=== PATIENT | male | born 1950 | race Caucasian/White ===

== ENCOUNTER 2020-11-13 19:02 | Emergency (ER) | payer MEDICARE, BC ==
[~2020-11-13] VITALS: Ht 170.2 cm; Wt 83.0 kg
--- NOTE | 2020-11-13 19:55 | NUR ---
PT TO ED FROM [place]. STATES HE HAS BEEN FEELING FATIGUED S FEVERS X TUESDAY LAST WEEK. HE HAS BEEN SWABBED FOR COVID, PEDING RESULTS. PT +SORE THROAT, DENIES H/A, N/V/D. PT +LOSS OF TASTE & SMELL X 2 DAYS. PT REPORTS LOW SPO2 AT HOME. PT SPEAKING IN FULL SENTANCES, 96% RA. PIV ESTB. LABS DRAWN & SENT. CXR COMPLETED. COVID SWAB PENDING. FAMILY UPDATED, [place], IN [facility]. VSS. DENIES ANY NEEDS. CALL LIGHT INREACH. WILL CTM.
[2020-11-13 20:02] LABS: BASOPHILS % (AUTO) 1 % (0-1); EOSINOPHILS % (AUTO) 0 % (1-7); LYMPHOCYTES % (AUTO) 28 % (22-44); MEAN CORPUSCULAR HEMOGLOBIN 31.8 pg (27.5-34.5); MEAN CORPUSCULAR HGB CONC 34.8 g/dL (33.2-36.2); MEAN PLATELET VOLUME 7.8 fL (7.4-10.4); MONOCYTES % (AUTO) 10 % (2-9); NEUTROPHILS % (AUTO) 62 % (42-75); PLATELET COUNT 172 x10^3/uL (130-400); RED BLOOD COUNT 4.76 x10^6/uL (4.38-5.82)
[2020-11-13 20:04] LABS: MD NO
[2020-11-13] MEDS ORDERED: METF500T17 PO (20:05)
[2020-11-13 20:08] LABS: ALANINE AMINOTRANSFERASE 241 U/L (12-78); ANION GAP 9 mmol/L (5-15); CHLORIDE 103 mmol/L (98-107); CREATININE 1.29 mg/dL (0.7-1.3)
[2020-11-13] MEDS ORDERED: SITA100T PO (20:08)
[2020-11-13] MEDS ORDERED: GLIP10TA13 PO (20:08)
[2020-11-13] MEDS ORDERED: EMPA25TA PO (20:08)
[2020-11-13] MEDS ORDERED: LOSA25TA25 PO (20:08)
[2020-11-13] MEDS ORDERED: ATOR10TA PO (20:08)
[2020-11-13 20:10] LABS: ALKALINE PHOSPHATASE 374 U/L (45-117); BILIRUBIN,TOTAL 1.4 mg/dL (0.2-1.0); TOTAL PROTEIN 8.2 g/dL (6.4-8.2)
--- NOTE | 2020-11-13 20:47 | NUR ---
TO CT VIA CART. AWARE OF +COVID.
[2020-11-13] MEDS ORDERED: OMNIPAQUE 350 MG/ML, 100ML BOTTLE ONE ×2 (20:56→22:10)
--- NOTE | 2020-11-13 21:19 | NUR ---
AT TO DISCUSS TEST RESULTS, POSSIBLE ADMISSION. PT REFUSING TO STAY. PT AWARE OF RISKS. PT AMBULATORY ABOUT THE UNIT C SPO2 MONITOR, DENIES ANY SOB, 120HR, 28RR, 93%RA SPO2. MD AWARE. CONTINUED DISCUSSION ON DISEASE PROCESS, PT CONTINUES TO REFUSE ADMISSION "ILL COME BACK TOMORROW, I NEED TO PREPARE FOR THIS".
[2020-11-13] MEDS ORDERED: SODIUM CHLORIDE 0.9%, 500ML IVBOLUS ONE (21:30)
--- NOTE | 2020-11-13 21:42 | NUR ---
PT AWARE THAT CTA CAN BE PERFORMED THIS EVENING. STARTED ON NSB. GIVEN EUA TO READ OVER & CALL LIGHT INREACH WHEN FINISHED, AWARE OF NEED TO CALL PHARM FOR DISPENSE.
--- NOTE | 2020-11-13 21:54 | NUR ---
PT WOULD LIKE TO HAVE CTA RESULTED & DISCUSSED PRIOR TO BAMBAM INFUSION. PHARM & MD AWARE.
--- NOTE | 2020-11-13 21:58 | NUR ---
PT TO CT VIA CART
--- NOTE | 2020-11-13 22:23 | NUR ---
AT BS TO DISCUSS CTA & BAMBAM. PT AGREES C INFUSION PLAN. AWARE OF TIME FRAME TO FOLLOW. PHARM AWARE. WILL CTM.
[2020-11-13] MEDS ORDERED: FILTER 0.22 MICRON IV ONE (23:00)
[2020-11-13] MEDS ORDERED: BAMLANIVIMAB 700 MG in SODIUM CHLORIDE 0.9% 250 ML IVPB ONE (23:00)
--- NOTE | 2020-11-13 23:30 | NUR ---
BAMBAM INFUSING WELL. DENIES ANY COMPLAINTS. WILL CTM.
--- NOTE | 2020-11-14 01:13 | NUR ---
PT A&OX4, No acute distress at this time. iv bam bam meds done, made aware. pt calm and in no acute respiratory distress at this time. RA sats 97%.
[2020-11-14 01:14] VITALS: BP 134/86
== END 2020-11-14 01:34 | disposition home or self-care (01) ==
LOC: ED 19:56
DX: U07.1 COVID-19 (principal); J12.82 Pneumonia due to coronavirus disease 2019; E11.65 Type 2 diabetes mellitus with hyperglycemia; R94.5 Abnormal results of liver function studies; M79.10 Myalgia, unspecified site; R05 Cough; I10 Essential (primary) hypertension; R55 Syncope and collapse; R00.0 Tachycardia, unspecified; R06.02 Shortness of breath; R06.00 Dyspnea, unspecified; Z88.0 Allergy status to penicillin; Z79.899 Other long term (current) drug therapy
CPT/HCPCS: 36415; 70498; 71045; 71275; 80053; 85025; 85379; 87635; 93005; 99285; J7040; J7050; M0239; Q0239; Q9967